=== PATIENT | female | born 2000 ===

== ENCOUNTER 2021-08-23 23:13 | Emergency (ER) | payer OTHER, SELFPAY ==
--- NOTE | ~2021-08-23 | XR_ITS ---
EXAMINATION: XR CHEST CLINICAL INFORMATION: Left-sided upper rib pain COMPARISON: None TECHNIQUE: 2 views of the chest were obtained. FINDINGS: Bilateral nipple piercing. Shunt tubing over the left chest. The lungs are well expanded. There is no focal consolidation, edema, or effusion. No pneumothorax. The cardiomediastinal silhouette is within normal limits. No acute osseous abnormality. XR/XR chest 2V IMPRESSION: Clear lungs. No focal rib abnormality identified.
[2021-08-23 23:44] VITALS: BP 124/79; PULSE 108; RESP 16; TEMP 36.4; O2SAT 96; BMI 31.0
[2021-08-24 00:19] LABS: Appearance Urine CLEAR; Color Urine YELLOW; Glucose Urine UA NEG (NEG); Leukocyte Esterase Urine NEG (NEG); Nitrite Urine NEG (NEG); Specific Gravity - Urine >= 1.030 (1.005-1.025); Urine Blood NEG (NEG); Urine Ketones NEG (NEG); Urine Protein NEG (NEG-TRACE)
--- NOTE | 2021-08-24 00:20 | ECG_ITS ---
Test Reason : LEFT SIDED RIB PAIN Blood Pressure : / mmHG Vent. Rate : 090 BPM Atrial Rate : 090 BPM P-R Int : 126 ms QRS Dur : 072 ms QT Int : 350 ms P-R-T Axes : 022 023 026 degrees QTc Int : 428 ms Normal sinus rhythm Normal ECG No previous ECGs available Referred By: Josue Oconnor Electronically Signed By:BRAD BRYAN
[2021-08-24 00:23] LABS: UPreg QC Valid YES; Urine Pregnancy NEGATIVE (NEGATIVE)
--- NOTE | 2021-08-24 00:24 | ED_ITS ---
HPI - General Adult General Chief complaint: Back Pain/Injury Stated complaint: left side pain Time Seen by Provider: 08/23/21 23:54 Source: patient Mode of arrival: ambulatory Limitations: no limitations History of Present Illness HPI narrative: 21-year-old female with PLANISHER shunt presents to ED for left-sided rib upper back pain that is worse on movement, bending down, and on inspiration. Patient states she woke up with the pain. States this morning she woke up and turned her upper torso to the left and then she had sudden pain. Patient denies any lower back pain, flank pain, dysuria, hematuria, abdominal pain, nausea, vomiting, fever, or chills. Related Data Previous Rx's Medication Instructions Recorded cyclobenzaprine 10 mg tablet 10 mg PO TID PRN 7 Days #21 tab 08/24/21 ketorolac 10 mg tablet 10 mg PO Q6H PRN 5 Days #20 tab 08/24/21 Allergies Allergy/AdvReac Type Severity Reaction Status Date / Time No Known Allergies Allergy Verified 08/24/21 01:07 [No Known Allergies*] Review of Systems Review of Systems: Left upper rib/back pain that is worse on movement. mild pleurisy Yes all other systems are reviewed and are negative PMFSH Social History Social History Advance Directives: No Patient : No Physical Exam ED Vital Signs: Vital Signs - 24 hr 08/23/21 23:44 Temperature 97.6 F Pulse Rate 108 H Respiratory Rate 16 Blood Pressure 124/79 Pulse Oximetry 96 BMI result Body Mass Index 31.0 Const General: cooperative, healthy appearing, comfortable, no acute distress, well developed, alert, awake and Physically active Orientation/consciousness: oriented to time and patient oriented x3 HENMT Head: Yes normal to inspection, Yes No palpable skull fracture present, Yes normocephalic, Yes atraumatic and No abrasion Eyes General: appearance normal, both eyes and all related structures Neck Neck: Yes normal visual inspection, Yes full ROM, Yes no lymphadenopathy, Yes no meningeal signs, Yes trachea midline, Yes supple, No anterior neck swelling and No tender Chest Chest/axillae images: 1. positive for tenderness on palpation. Negative for crepitus, erythema, rash, or deformity. Resp Effort & Inspection: normal respiratory effort and able to speak in complete sentences Auscultation: clear to auscultation bilaterally Cardio Jugular venous distension: no JVD Heart sounds: S1 normal heart sound present and S2 normal heart sound present GI Inspection: Yes normal to inspection and No abdominal wall ecchymosis Palpation (GI): Soft to palpation, not firm, nontender, no guarding and not rigid General: No CVA tenderness and Yes no CVA tenderness Back/Spine/Pelvis Back: no CVA tenderness, No CVA tenderness and No back tenderness Back/spine/pelvis image: 1. Positive for tenderness. Negative for ecchymosis, crepitus, deformity, or erythema. Skin General skin exam: no rashes or lesions noted and elasticity normal Neuro General: oriented to time, patient oriented x3, gait normal, no meningeal signs and CN's II-XI intact bilaterally Cranial nerves: Yes CN's II-XII intact bilaterally Extrem Other: Lower extremities negative for swelling, pitting edema, or calf tenderness. General: Yes normal to inspection and Yes full ROM Psych Appearance: grossly normal, well kempt and not disheveled Course Course Course Narrative: History physical exam most likely in the case muscle spasm/muscle strain but due to patient stating pleurisy will do basic labs, EKG, and D-dimer. Toradol and cyclobenzaprine ordered. Reevaluation(s) Reevaluation #1: Patient's EKG negative STEMI. D-dimer negative with PERC score 0. Heart score is 0. Troponin negative. Chest x-ray normal negative for any fracture. Physical exam indicate muscle spasm/chest wall sprain. Symptoms improved with muscle relaxer and Toradol. Time: 01:44 Medical Decision Making [facility] Narrative Medical decision making narrative: Muscle strain. Lab Data Result diagrams: 08/24/21 01:05 08/24/21 01:05 Labs: Lab Results 08/24/21 08/24/21 08/24/21 Range/Units 00:11 00:11 01:05 WBC 10.8 (4.8-10.8) X10*3/uL RBC 4.30 (4.20-5.50) X10*6/uL Hgb 12.6 (12.0-16.0) g/dl Hct 38.8 (37.0-47.0) % MCV 90.2 (80.0-98.0) fL MCH 29.3 (27.0-33.0) pg MCHC 32.5 (31.0-35.0) g/dl RDW 12.2 (11.0-16.0) % Plt Count 436 H (160-400) X10*3/uL MPV 10.3 (9.4-12.3) fL Immature Gran % (Auto) 0.3 (0.0-0.4) % Neut % (Auto) 70.5 (45-73) % Lymph % (Auto) 20.5 (20-40) % [place] % (Auto) 7.1 (2-11) % Eos % (Auto) 1.0 (0-4) % Baso % (Auto) 0.6 (0-2) % Lymph # (Auto) 2.2 (1.2-4.9) X10*3/uL [place] # (Auto) 0.8 (0.1-1.2) X10*3/uL Eos # (Auto) 0.1 (0.0-0.4) X10*3/uL Baso # (Auto) 0.1 (0.0-0.2) X10*3/uL Abs Immat Gran (auto) 0.03 (0.00-0.03) X10*3/uL Absolute Neuts (auto) 7.6 (2.0-8.3) x10*3/uL Absolute Nucleated RBC 0.000 (0.0-0.012) X10*3/uL Nucleated RBC % (auto) 0.0 (0.0-0.2) /100WBC PT (9.9-13.0) SEC INR (0.9-1.1) APTT (24.1-38.0) SEC D-Dimer High Sensitivty NG/ML Sodium (135-145) mmol/L Potassium (3.3-5.1) mmol/L Chloride (96-108) mmol/L Carbon Dioxide (22-29) mmol/L Anion Gap (12-20) BUN (9-16) mg/dL Creatinine (0.5-1.4) mg/dL Estim Creat Clear Calc Estimated GFR Random Glucose (60-115) mg/dL Calcium (8.4-10.2) mg/dL Total Bilirubin (0.0-1.0) mg/dL AST (5-31) U/L ALT (0-31) U/L Alkaline Phosphatase (39-117) U/L Troponin I High Sens (<3.5-17.0) ng/L Total Protein (6.5-8.0) g/dL Albumin (3.5-5.0) g/dL Urine Color YELLOW Urine Appearance CLEAR Urine pH 6.0 (5.0-8.0) Ur Specific [place] >= 1.030 H (1.005-1.025) Urine Protein NEG (NEG-TRACE) MG/DL Urine Glucose (UA) NEG (NEG) MG/DL Urine Ketones NEG (NEG) MG/DL Urine Blood NEG (NEG) Urine Nitrite NEG (NEG) Ur Leukocyte Esterase NEG (NEG) Urine Test NEGATIVE (NEGATIVE) 08/24/21 08/24/21 08/24/21 Range/Units 01:05 01:05 01:05 WBC (4.8-10.8) X10*3/uL RBC (4.20-5.50) X10*6/uL Hgb (12.0-16.0) g/dl Hct (37.0-47.0) % MCV (80.0-98.0) fL MCH (27.0-33.0) pg MCHC (31.0-35.0) g/dl RDW (11.0-16.0) % Plt Count (160-400) X10*3/uL MPV (9.4-12.3) fL Immature Gran % (Auto) (0.0-0.4) % Neut % (Auto) (45-73) % Lymph % (Auto) (20-40) % [place] % (Auto) (2-11) % Eos % (Auto) (0-4) % Baso % (Auto) (0-2) % Lymph # (Auto) (1.2-4.9) X10*3/uL [place] # (Auto) (0.1-1.2) X10*3/uL Eos # (Auto) (0.0-0.4) X10*3/uL Baso # (Auto) (0.0-0.2) X10*3/uL Abs Immat Gran (auto) (0.00-0.03) X10*3/uL Absolute Neuts (auto) (2.0-8.3) x10*3/uL Absolute Nucleated RBC (0.0-0.012) X10*3/uL Nucleated RBC % (auto) (0.0-0.2) /100WBC PT 11.5 (9.9-13.0) SEC INR 1.0 (0.9-1.1) APTT 39.4 H (24.1-38.0) SEC D-Dimer High Sensitivty < 150 NG/ML Sodium 138 (135-145) mmol/L Potassium 3.9 (3.3-5.1) mmol/L Chloride 103 (96-108) mmol/L Carbon Dioxide 26 (22-29) mmol/L Anion Gap 13 (12-20) BUN 13 (9-16) mg/dL Creatinine 0.69 (0.5-1.4) mg/dL Estim Creat Clear Calc 118.1 Estimated GFR > 60 Random Glucose 113 (60-115) mg/dL Calcium 9.4 (8.4-10.2) mg/dL Total Bilirubin 0.4 (0.0-1.0) mg/dL AST 11 (5-31) U/L ALT 12 (0-31) U/L Alkaline Phosphatase 73 (39-117) U/L Troponin I High Sens < 3.5 (<3.5-17.0) ng/L Total Protein 7.1 (6.5-8.0) g/dL Albumin 4.3 (3.5-5.0) g/dL Urine Color Urine Appearance Urine pH (5.0-8.0) Ur Specific [place] (1.005-1.025) Urine Protein (NEG-TRACE) MG/DL Urine Glucose (UA) (NEG) MG/DL Urine Ketones (NEG) MG/DL Urine Blood (NEG) Urine Nitrite (NEG) Ur Leukocyte Esterase (NEG) Urine Test (NEGATIVE) ECG Data Interpretation: Normal sinus rhythm. Ventricular rate 90. Pr interval 126. QRS 82 pr QTC 428. Negative STEMI Discharge Plan Discharge Clinical Impression: Muscle strain of anterior chest wall Patient Disposition: Home, Self-Care Instructions: Muscle Strain (DC), Chest Wall Pain (ED) Additional Instructions: Your blood work, EKG, and x-ray came back negative for signs of heart attack, blood clot, pneumonia, or rib fractures. Your urine came back negative for infection and negative for . The labs are normal. Will be discharged with pain medication and muscle relaxer. Return to the ED for worsening pain on movement, any abdominal pain, flank pain, dysuria, hematuria, fever, chills, chest pain, shortness of breath, leg swelling, calf pain, or any other concern ing symptoms. Please follow-up primary care provider Prescriptions: New cyclobenzaprine 10 mg tablet 10 mg PO TID PRN (Reason: muscle spasm) 7 Days Qty: 21 0RF Rx Instructions: side effect is drowsiness. Do not take at work or while driving. ketorolac 10 mg tablet 10 mg PO Q6H PRN (Reason: pain) 5 Days Qty: 20 0RF Rx Instructions: Patient received Toradol 30 mg IM in the ER. Stand Alone Forms: Work/School Release Print Language: Occitan
[2021-08-24] MEDS: Ketorolac Tromethamine 30 MG/ML VIAL IM (01:12)
[2021-08-24 01:13] LABS: MANUAL DIFF FLAG NO
[2021-08-24] MEDS: Cyclobenzaprine HCl 10 MG TABLET PO (01:13)
[2021-08-24 01:14] LABS: Basophils Absolute Auto 0.1 X10*3/uL (0.0-0.2); Basophils Percent Auto 0.6 % (0-2); Eosinophils Absolute Auto 0.1 X10*3/uL (0.0-0.4); Hematocrit 38.8 % (37.0-47.0); Hemoglobin 12.6 g/dl (12.0-16.0); Imm Gran Abs Auto 0.03 X10*3/uL (0.00-0.03); Imm Gran Pct Auto 0.3 % (0.0-0.4); Lymphocytes Absolute Auto 2.2 X10*3/uL (1.2-4.9); Lymphocytes Percent Auto 20.5 % (20-40); Mean Corpuscular HGB Conc 32.5 g/dl (31.0-35.0); Mean Corpuscular Hemoglobin 29.3 pg (27.0-33.0); Mean Corpuscular Volume 90.2 fL (80.0-98.0); Mean Platelet Volume 10.3 fL (9.4-12.3); Monocytes Absolute Auto 0.8 X10*3/uL (0.1-1.2); Monocytes Percent Auto 7.1 % (2-11); Neutrophils Absolute Auto 7.6 x10*3/uL (2.0-8.3); Neutrophils Percent Auto 70.5 % (45-73); Platelet Count 436 X10*3/uL (160-400); Red Cell Distribution Width 12.2 % (11.0-16.0); White Blood Count 10.8 X10*3/uL (4.8-10.8)
[2021-08-24 01:32] LABS: Alanine Aminotransferase 12 U/L (0-31); Albumin Level 4.3 g/dL (3.5-5.0); Alkaline Phosphatase 73 U/L (39-117); Anion Gap 13 (12-20); Aspartate Amino Transferase 11 U/L (5-31); Bilirubin Total 0.4 mg/dL (0.0-1.0); Blood Urea Nitrogen 13 mg/dL (9-16); Calcium 9.4 mg/dL (8.4-10.2); Carbon Dioxide 26 mmol/L (22-29); Chloride 103 mmol/L (96-108); Creatinine Clr Calc Pharmacy 118.1; Estimated Glomerular Filt Rate > 60; Glucose Random 113 mg/dL (60-115); Potassium 3.9 mmol/L (3.3-5.1); Sodium 138 mmol/L (135-145); Total Protein 7.1 g/dL (6.5-8.0)
[2021-08-24 01:33] LABS: Prothrombin Time 11.5 SEC (9.9-13.0)
[2021-08-24 01:36] LABS: D Dimer High Sensitivity < 150 NG/ML; Partial Thromboplastin Time 39.4 SEC (24.1-38.0); Troponin-I High Sensitivity < 3.5 ng/L (<3.5-17.0)
[2021-08-24 02:00] VITALS: BP 131/83; PULSE 92; RESP 16; O2SAT 98
== END 2021-08-24 02:11 | disposition home or self-care (01) ==
PROVIDERS: Physician Assistant; Emergency Provider Internal Medicine
DX: S29.011A Strain of muscle and tendon of front wall of thorax, initial encounter (principal); M54.50 Low back pain, unspecified; R07.81 Pleurodynia; X58.XXXA Exposure to other specified factors, initial encounter; Y93.9 Activity, unspecified; Y92.9 Unspecified place or not applicable; Y99.9 Unspecified external cause status; Z79.899 Other long term (current) drug therapy
CPT/HCPCS: 36415; 71046; 80053; 81003; 81025; 84484; 85025; 85379; 85610; 85730; 93005; 96372; 99284; J1885

== ENCOUNTER 2023-01-17 08:50 | Emergency (ER) | payer OTHER, SELFPAY ==
--- NOTE | ~2023-01-17 | CT_ITS ---
EXAMINATION: CT ABDOMEN AND PELVIS WITHOUT CONTRAST CLINICAL INFORMATION: Right flank pain. COMPARISON: None available. TECHNIQUE: Multidetector volumetric imaging was performed from the superior aspect of the liver through the pubic symphysis. Sagittal and coronal reformatted images were obtained on the technologist's workstation. This CT examination was performed using dose optimization techniques as appropriate, variously including the following: *Automated exposure control *Adjustment of mA and/or kV according to patient size (this includes techniques or standardized protocols for targeted exams where dose is matched to indication/reason for exam; i.e. extremities or head) *Use of iterative reconstruction technique DLP: 617 mGy-cm FINDINGS: LUNG BASES: The visualized lung bases are unremarkable. LIVER, GALLBLADDER, AND BILIARY TREE: The noncontrast liver is decreased in attenuation. No biliary ductal dilatation is present. The gallbladder is unremarkable with no evidence of radiopaque gallstones, gallbladder wall thickening, or obvious pericholecystic inflammatory changes. PANCREAS: Unremarkable. SPLEEN: Unremarkable. ADRENAL GLANDS: Unremarkable. KIDNEYS AND URETERS: The kidneys are symmetric in size. 2 mm and 3 mm nonobstructing lower pole left renal calculi. No hydronephrosis or perinephric stranding. No ureteral calculus. BLADDER: Unremarkable. GASTROINTESTINAL TRACT: Small hiatal hernia. Small and large bowel loops are of normal caliber. No small bowel obstruction. Appendix is within normal limits. ABDOMINAL WALL: No significant hernia is appreciated. LYMPH NODES: Few prominent right lower quadrant mesenteric lymph nodes. VASCULAR: Normal caliber abdominal aorta. PELVIC VISCERA: The uterus and adnexa are unremarkable. OSSEOUS STRUCTURES: No destructive bone lesions. CT/CT abdomen pelvis wo IV con IMPRESSION: Possible mesenteric adenitis. Advise clinical correlation. Nonobstructing left renal calculi. No hydronephrosis. Hepatic steatosis.
[2023-01-17 09:01] VITALS: BP 138/93; PULSE 88; RESP 18; TEMP 36.8; O2SAT 100; BMI 35.1
[2023-01-17 09:29] LABS: MANUAL DIFF FLAG NO
[2023-01-17 09:32] LABS: Appearance Urine Clear; Color Urine Yellow; Glucose Urine UA Negative (Negative); Leukocyte Esterase Urine Negative (Negative); Nitrite Urine Negative (Negative); PH 8.5 (5.0-9.0); Urine Blood Negative (Negative); Urine Ketones Negative (Negative); Urine Protein Trace mg/dL (Neg-Trace)
[2023-01-17 09:35] LABS: Basophils Percent Auto 0.5 % (0-2); Eosinophils Absolute Auto 0.1 X10*3/uL (0.0-0.4); Eosinophils Percent Auto 1.1 % (0-4); Hematocrit 38.2 % (37.0-47.0); Hemoglobin 12.3 g/dl (12.0-16.0); Imm Gran Abs Auto 0.02 X10*3/uL (0.00-0.03); Imm Gran Pct Auto 0.2 % (0.0-0.4); Lymphocytes Absolute Auto 1.6 X10*3/uL (1.2-4.9); Mean Corpuscular HGB Conc 32.2 g/dl (31.0-35.0); Mean Corpuscular Hemoglobin 29.1 pg (27.0-33.0); Mean Corpuscular Volume 90.3 fL (80.0-98.0); Monocytes Absolute Auto 0.5 X10*3/uL (0.1-1.2); Monocytes Percent Auto 5.6 % (2-11); Neutrophils Percent Auto 72.6 % (45-73); Platelet Count 347 X10*3/uL (160-400); Red Blood Count 4.23 X10*6/uL (4.20-5.50); Red Cell Distribution Width 13.6 % (11.0-16.0); White Blood Count 8.2 X10*3/uL (4.8-10.8)
[2023-01-17 09:52] LABS: Alanine Aminotransferase 15 U/L (0-31); Albumin Level 4.2 g/dL (3.5-5.0); Alkaline Phosphatase 76 U/L (39-117); Anion Gap 10 (12-20); Aspartate Amino Transferase 12 U/L (5-31); Bilirubin Direct < 0.2 mg/dL (0.0-0.5); Bilirubin Total 0.2 mg/dL (0.0-1.0); Blood Urea Nitrogen 8 mg/dL (9-16); Calcium 9.3 mg/dL (8.4-10.2); Carbon Dioxide 24 mmol/L (22-29); Chloride 109 mmol/L (96-108); Creatinine Clr Calc Pharmacy 126.7; Estimated Glomerular Filt Rate > 60; Glucose Random 109 mg/dL (60-115); Potassium 4.1 mmol/L (3.3-5.1); Sodium 139 mmol/L (135-145); Total Protein 7.1 g/dL (6.5-8.0)
--- NOTE | 2023-01-17 10:39 | ED.GENADULT ---
HPI - General Adult General Chief complaint: Abdominal Pain Stated complaint: Vomiting/R side back pain Time Seen by Provider: 01/17/23 10:30 Source: patient Mode of arrival: ambulatory Limitations: no limitations History of Present Illness HPI narrative: This is a 22 years old female presented to the emergency department complaining of right flank pain and nausea symptoms going on for about a couple of weeks. Denies any fever any chills. Onset (ago): week(s) (2) Location: abdomen Radiation: non-radiation Severity: moderate Quality: burning Relieving factors: none Exacerbating factors: none Related Data Previous Rx's Medication Instructions Recorded cyclobenzaprine 10 mg tablet 10 mg PO TID PRN muscle spasm 7 08/24/21 days #21 tabs ketorolac 10 mg tablet 10 mg PO Q6H PRN pain 5 days #20 08/24/21 tabs metoclopramide HCl 10 mg tablet 10 mg PO Q6H PRN nausea and 01/17/23 (Reglan) vomiting #15 tabs Allergies Allergy/AdvReac Type Severity Reaction Status Date / Time No Known Allergies Allergy Verified 01/17/23 09:06 [No Known Allergies*] Review of Systems Constitutional: Constitutional: Reports no additional constitutional complaints ENT: Reports system reviewed and no additional complaints, except as documented Cardiovascular: Cardiovascular: Reports no additional cardiovascular complaints Gastrointestinal: Gastrointestinal: Reports nausea and Reports vomiting PMFSH Past Medical History PMFSH Narrative: Hydrocephalus, status post [employer] shunt Social History Social History Alcohol intake: never Smoked in Last 30 Days: No Use of substances other than those prescribed or required for medical reasons: Yes Substance Use Type: Marijuana Last Used Substance: Days (ago) Advance Directives: No Physical Exam ED Vital Signs: Vital Signs - 24 hr 01/17/23 09:01 01/17/23 11:31 01/17/23 13:27 Temperature 98.2 F Pulse Rate 88 76 71 Respiratory Rate 18 18 18 Blood Pressure 138/93 H 134/91 H 120/53 L Pulse Oximetry 100 99 98 Oxygen Delivery Method Room Air Room Air Room Air BMI result Body Mass Index 35.1 Const General: cooperative Nutritional Appearance: well nourished Orientation/consciousness: patient oriented x3 HENMT Head: Yes normal to inspection Face and sinus: Yes normal facial exam Throat: Yes posterior oropharynx normal Neck Neck: Yes normal visual inspection Chest Chest palpation & inspection: normal inspection of the chest Resp Effort & Inspection: normal respiratory effort Auscultation: clear to auscultation bilaterally Cardio Palpation: normal PMI Rate: regular rate Rhythm: regular rhythm GI Inspection: Yes normal to inspection Palpation (GI): Soft to palpation, not firm, nontender and no guarding Skin General skin exam: no rashes or lesions noted Lesions: no lesions Rashes: no rashes Trauma: no lacerations or abrasions Neuro General: patient oriented x3 Extrem General: Yes normal to inspection Left upper extremity: normal to inspection Right lower extremity: normal to inspection Course Reevaluation(s) Reevaluation #1: Patient is asymptomatic at this time nausea gone,ct mesenteric adenitis, she can be d/c home she is feeling much better now Time: 14:51 Medications Administered Discontinued Medications Generic Name Dose Route Start Last Admin Trade Name Freq PRN Reason Stop Dose Admin Diphenhydramine HCl 12.5 mg 01/17/23 13:16 01/17/23 13:26 Diphenhydramine Hcl 50 Mg/Ml Vial IVPUSH 01/17/23 13:17 12.5 mg ONCE ONE Administration Ketorolac Tromethamine 15 mg 01/17/23 10:37 01/17/23 11:31 Ketorolac Tromethamine 15 Mg/Ml Vial IVPUSH 01/17/23 10:38 15 mg ONCE ONE Administration Metoclopramide HCl 10 mg 01/17/23 13:16 01/17/23 13:26 Metoclopramide Hcl 10 Mg/2 Ml Vial IVPUSH 01/17/23 13:17 10 mg ONCE ONE Administration Ondansetron HCl 4 mg 01/17/23 10:37 01/17/23 11:31 Ondansetron Hcl 4 Mg/2 Ml Vial IVPUSH 01/17/23 10:38 4 mg ONCE ONE Administration Medical Decision Making Medical Decision Making [facility] Narrative: Patient presented with a chief complaint of nausea vomiting flank pain will obtain labs will do CT scan Differential Diagnosis Differential Diagnoses: The differential diagnosis associated with the presentation includes Viral syndrome/kidney stone/pyelonephritis Lab Data [facility] Lab Attestation statement: I reviewed the patient's lab results. 01/17/23 09:21 01/17/23 09:21 Labs: Lab Results 01/17/23 Range/Units 09:21 WBC 8.2 (4.8-10.8) X10*3/uL RBC 4.23 (4.20-5.50) X10*6/uL Hgb 12.3 (12.0-16.0) g/dl Hct 38.2 (37.0-47.0) % MCV 90.3 (80.0-98.0) fL MCH 29.1 (27.0-33.0) pg MCHC 32.2 (31.0-35.0) g/dl RDW 13.6 (11.0-16.0) % Plt Count 347 (160-400) X10*3/uL MPV 11.0 (9.4-12.3) fL Immature Gran % (Auto) 0.2 (0.0-0.4) % Neut % (Auto) 72.6 (45-73) % Lymph % (Auto) 20.0 (20-40) % [place] % (Auto) 5.6 (2-11) % Eos % (Auto) 1.1 (0-4) % Baso % (Auto) 0.5 (0-2) % Lymph # (Auto) 1.6 (1.2-4.9) X10*3/uL [place] # (Auto) 0.5 (0.1-1.2) X10*3/uL Eos # (Auto) 0.1 (0.0-0.4) X10*3/uL Baso # (Auto) 0.0 (0.0-0.2) X10*3/uL Abs Immat Gran (auto) 0.02 (0.00-0.03) X10*3/uL Absolute Neuts (auto) 6.0 (2.0-8.3) x10*3/uL Absolute Nucleated RBC 0.000 (0.0-0.012) X10*3/uL Nucleated RBC % (auto) 0.0 (0.0-0.2) /100WBC Sodium 139 (135-145) mmol/L Potassium 4.1 (3.3-5.1) mmol/L Chloride 109 H (96-108) mmol/L Carbon Dioxide 24 (22-29) mmol/L Anion Gap 10 L (12-20) BUN 8 L (9-16) mg/dL Creatinine 0.68 (0.5-1.4) mg/dL Estim Creat Clear Calc 126.7 Estimated GFR > 60 Random Glucose 109 (60-115) mg/dL Calcium 9.3 (8.4-10.2) mg/dL Total Bilirubin 0.2 (0.0-1.0) mg/dL Direct Bilirubin < 0.2 (0.0-0.5) mg/dL AST 12 (5-31) U/L ALT 15 (0-31) U/L Alkaline Phosphatase 76 (39-117) U/L Total Protein 7.1 (6.5-8.0) g/dL Albumin 4.2 (3.5-5.0) g/dL Urine Color Yellow Urine Appearance Clear Urine pH 8.5 (5.0-9.0) Ur Specific [place] 1.020 (1.005-1.025) Urine Protein Trace (Neg-Trace) mg/dL Urine Glucose (UA) Negative (Negative) mg/dL Urine Ketones Negative (Negative) mg/dL Urine Blood Negative (Negative) Urine Nitrite Negative (Negative) Ur Leukocyte Esterase Negative (Negative) Urine Test NEGATIVE (NEGATIVE) Independent Interpretation I performed an independent interpretation of an: CT Scan Interpretation: mesenteric adenitis Prescription Management I considered prescription management with: Pain Medication Discharge Plan Discharge Clinical Impression: Abdominal pain Patient Disposition: Home, Self-Care Instructions: Abdominal Pain (ED) Additional Instructions: follow up with PCP return if worse Prescriptions: New metoclopramide HCl [Reglan] 10 mg tablet 10 mg PO Q6H PRN (Reason: nausea and vomiting) Qty: 15 0RF No Action cyclobenzaprine 10 mg tablet 10 mg PO TID PRN (Reason: muscle spasm) 7 Days Qty: 21 0RF Rx Instructions: side effect is drowsiness. Do not take at work or while driving. ketorolac 10 mg tablet 10 mg PO Q6H PRN (Reason: pain) 5 Days Qty: 20 0RF Rx Instructions: Patient received Toradol 30 mg IM in the ER. Referrals: Mane Campbell MD [Primary Care Provider] - 2 days
[2023-01-17 10:53] LABS: UPreg QC Valid YES; Urine Pregnancy NEGATIVE (NEGATIVE)
[2023-01-17 11:31] VITALS: BP 134/91; PULSE 76; RESP 18; O2SAT 99
[2023-01-17] MEDS: ondansetron HCL 4 MG/2 ML VIAL IVPUSH (11:31)
[2023-01-17] MEDS: Ketorolac Tromethamine 15 MG/ML VIAL IVPUSH (11:31)
--- NOTE | 2023-01-17 12:50 | PC.NURSE ---
pt a&ox3. respirations even and unlabored. pt reporting right lower abdominal pain that is radiating into her right back. pt reports nausea with no vomiting or diarrhea. pt abdomen soft non tender to touch. pt reports she smokes marijuana but has not since she began having pain.
[2023-01-17] MEDS: Metoclopramide HCl 10 MG/2 ML VIAL IVPUSH (13:26)
[2023-01-17] MEDS: diphenhydrAMINE HCL 50 MG/ML VIAL 12.5 MG IVPUSH (13:26)
[2023-01-17 13:27] VITALS: BP 120/53; PULSE 71; RESP 18; O2SAT 98
[2023-01-17 15:46] VITALS: BP 138/74; PULSE 74; RESP 14; TEMP 37; O2SAT 98
== END 2023-01-17 15:49 | disposition home or self-care (01) ==
PROVIDERS: Emergency Provider Emergency Medicine; PCP Internal Medicine
DX: R11.2 Nausea with vomiting, unspecified (principal); R10.2 Pelvic and perineal pain; M54.50 Low back pain, unspecified; Z79.899 Other long term (current) drug therapy
CPT/HCPCS: 36415; 74176; 80048; 80076; 81003; 81025; 85025; 96374; 96375; 99284; J1200; J1885; J2405; J2765